=== PATIENT | female | born 1960 | race Caucasian/White ===

== ENCOUNTER 2018-04-23 12:52 | Outpatient (CLI) | payer MEDICARE | END 2018-04-23 23:59 | disposition home or self-care (01) | LOC: CARD DIAG 12:52 | PROVIDERS: ATTEND Family Medicine | DX: I07.1 Rheumatic tricuspid insufficiency (principal) | CPT/HCPCS: 93306 ==

== ENCOUNTER 2019-10-20 09:41 | Day surgery (SDC) | payer MEDICARE, MEDICAID ==
[~2019-10-20] VITALS: Ht 160 cm; Wt 111.0 kg
[~2019-10-20 09:41] MED LIST: ADV50100 IH; ATR0.5NEB NEB; BISA-155 PO; CARV3.12 PO; CLOP75TA15 PO; DOCU-329 PO; ESCI10TA61 PO; FERR325T28 PO; FLUT100D2 IH; HYDR-4353 PO; INSU100I8 SQ; LACTC PO; MONT10TA21 PO; NA P133E4 RC; PANT40TA4 PO; SENN-250 PO; TRAZ-251 PO; UMEC62.5 INH
[2019-10-20 10:15] VITALS: BP 119/76
[2019-10-20] MEDS ORDERED: normal saline 1000ml 1,000 ML IV PRN (10:20)
[2019-10-20] MEDS ORDERED: LIDOcaine 1%/PF 5ML 10 MG/ML VIAL SQ ONE (10:35)
[2019-10-20] MEDS ORDERED: midazolam 2 mg/2 ml injection IV PRN (10:35)
[2019-10-20] MEDS ORDERED: heparin 1,000 units/ml 10ml inj ICATH ONE (10:35)
[2019-10-20] MEDS ORDERED: fentaNYL/PF 50MCG/1 ML 2ML syringe IV PRN (10:35)
[2019-10-20] MEDS ORDERED: VENL75TA4 (10:36)
[2019-10-20] MEDS ORDERED: FURO80TA3 (10:36)
[2019-10-20] MEDS ORDERED: HUM7525 SQ (10:36)
[2019-10-20] MEDS ORDERED: FLUT16SP26 (10:36)
[2019-10-20] MEDS ORDERED: DICL100G30 (10:36)
[2019-10-20 10:49] LABS: ALBUMIN 3.7 G/DL (3.4-5.0); ANION GAP 8 (8-16); BLOOD UREA NITROGEN 60 MG/DL (7-18); BUN/CREATININE RATIO 19.8 (6.6-38.0); CALCIUM 8.8 MG/DL (8.5-10.1); CHLORIDE 104 MMOL/L (99-107); CREATININE 3.03 MG/DL (0.40-0.90); GLUCOSE 158 MG/DL (70-104); SODIUM 140 MMOL/L (135-145); TOTAL CARBON DIOXIDE 28.1 MMOL/L (24-32); eGFR 16 ML/MIN
[2019-10-20] MEDS ORDERED: heparin 1,000unit/ml 10ml vial 10 ML ONE (11:00)
[2019-10-20] MEDS ORDERED: LIDOcaine 1%/PF 5ML 10 MG/ML VIAL ONE (11:00)
[2019-10-20] MEDS ORDERED: midazolam 2 mg/2 ml injection ONE (11:00)
[2019-10-20] MEDS ORDERED: fentaNYL/PF 50MCG/1 ML 2ML syringe ONE (11:00)
[2019-10-20 13:00] VITALS: BP 120/62
[2019-10-20 13:15] VITALS: BP 96/52
[2019-10-20 13:30] VITALS: BP 120/79
[2019-10-20 13:45] VITALS: BP 125/93
[2019-10-20] MEDS ORDERED: cefazolin/dext.iso 2gm/100ml 100 ML IV SCH (16:00)
== END 2019-10-20 14:35 | disposition home or self-care (01) ==
LOC: SSTAY O 09:41
PROVIDERS: ATTEND Radiology Diagnostic Radiology
DX: T82.868A Thrombosis due to vascular prosthetic devices, implants and grafts, initial encounter (principal); N18.9 Chronic kidney disease, unspecified; Z99.2 Dependence on renal dialysis
CPT/HCPCS: 36415; 36581; 77001; 80048; 82948; 99152; 99153; C1769; J1644; J2250; J3010; J7030

== ENCOUNTER 2019-12-16 11:13 | Day surgery (SDC) | payer MEDICARE, MEDICAID ==
[2019-12-16] VITALS (7 sets, daily range): BP systolic 115–148; BP diastolic 59–98
[~2019-12-16] VITALS: Ht 160 cm; Wt 111.0 kg
[~2019-12-16 11:13] MED LIST changes: -ADV50100 IH; -BISA-155 PO; -CARV3.12 PO; +DICL100G30; -DOCU-329 PO; -ESCI10TA61 PO; -FERR325T28 PO; +FLUT16SP26; +FURO80TA3; +HUM7525 SQ; -HYDR-4353 PO; -INSU100I8 SQ; -LACTC PO; -NA P133E4 RC; -SENN-250 PO; +VENL75TA4
--- NOTE | 2019-12-16 11:20 | NUR ---
Pt arrived to unit via wheelchair. Pt oriented to room, including call light use.
[2019-12-16] MEDS ORDERED: cefazolin/dext.iso 2gm/100ml 100 ML IV ONE (12:00)
[2019-12-16] MEDS ORDERED: DICL100G15 TOP (12:09)
[2019-12-16] MEDS ORDERED: INSU100I25 SQ (12:09)
[2019-12-16] MEDS ORDERED: ALBU18HF2 INH (12:09)
[2019-12-16] MEDS ORDERED: SEVE800T28 PO (12:09)
[2019-12-16] MEDS ORDERED: METO5TAB7 PO (12:09)
[2019-12-16] MEDS ORDERED: IPRA3AMP31 INH (12:09)
[2019-12-16 12:26] LABS: BASOPHILS # (AUTO) 0.1 X10'3 (0-0.2); BASOPHILS % (AUTO) 0.4 % (0-1); EOSINOPHILS # (AUTO) 0.2 X10'3 (0-0.9); EOSINOPHILS % (AUTO) 1.1 % (0-6); HEMATOCRIT 35.4 % (35.0-45.0); LYMPHOCYTES # (AUTO) 2.4 X10'3 (1.1-4.8); LYMPHOCYTES % (AUTO) 12.2 % (21-51); MEAN CORPUSCULAR HEMOGLOBIN 31.5 PG (27.0-31.0); MEAN CORPUSCULAR VOLUME 92.7 FL (78-98); MEAN PLATELET VOLUME 7.8 FL (7.4-10.4); MONOCYTES # (AUTO) 1.6 X10'3 (0-0.9); MONOCYTES % (AUTO) 7.9 % (2-12); NEUTROPHILS # (AUTO) 15.7 X10'3 (1.8-7.7); NEUTROPHILS % (AUTO) 78.4 % (42-75); PLATELET COUNT 283 X10'3 (140-440); RED BLOOD COUNT 3.82 X10'6 (4.20-5.60); RED CELL DISTRIBUTION WIDTH 13.7 % (11.5-14.5)
[2019-12-16 13:14] LABS: PLATELET ESTIMATE NORMAL; TOTAL CELLS COUNTED 100
--- NOTE | 2019-12-16 14:00 | NUR ---
Pt transported to angio suite via [facility].
[2019-12-16] MEDS ORDERED: midazolam 2 mg/2 ml injection ONE ×2 (14:18→14:22)
[2019-12-16] MEDS ORDERED: LIDOcaine 1%/PF 5ML 10 MG/ML VIAL ONE (14:18)
[2019-12-16] MEDS ORDERED: fentaNYL/PF 50MCG/1 ML 2ML syringe ONE ×2 (14:19→14:54)
[2019-12-16] MEDS ORDERED: heparin 1,000unit/ml 10ml vial 10 ML ONE (14:38)
--- NOTE | 2019-12-16 15:20 | NUR ---
Pt returned to room via [facility] after TDC exchange. VSS as charted.
--- NOTE | 2019-12-16 15:53 | NUR ---
Pt complaining of 8/10 pain at [address] site. Dr[address] Lane contacted, order received for 650mg PO one time dose of Tylenol.
[2019-12-16] MEDS ORDERED: acetaminophen 325mg tablet PO PRN (15:55)
== END 2019-12-16 16:30 | disposition home or self-care (01) ==
LOC: SSTAY O 11:13
PROVIDERS: ATTEND Radiology Diagnostic Radiology
DX: T82.858A Stenosis of other vascular prosthetic devices, implants and grafts, initial encounter (principal); Y83.8 Other surgical procedures as the cause of abnormal reaction of the patient, or of later complication, without mention of misadventure at the time of the procedure; E11.9 Type 2 diabetes mellitus without complications; Z88.2 Allergy status to sulfonamides; Z88.8 Allergy status to other drugs, medicaments and biological substances; Z88.1 Allergy status to other antibiotic agents; Z79.899 Other long term (current) drug therapy; Z79.4 Long term (current) use of insulin; Z79.01 Long term (current) use of anticoagulants
CPT/HCPCS: 36415; 36558; 76937; 77001; 82948; 85025; 99152; 99153; C1750; C1769; C1894; J1644; J2250; J3010; 36589; A9270

== ENCOUNTER 2020-05-08 10:57 | Day surgery (SDC) | payer MEDICARE, MEDICAID ==
[~2020-05-08] VITALS: Ht 160 cm; Wt 118.5 kg
[~2020-05-08 10:57] MED LIST changes: +ALBU18HF2 INH; -ATR0.5NEB NEB; +DICL100G15 TOP; -DICL100G30; -FURO80TA3; +FURO80TA3 PO; +INSU100I25 SQ; +IPRA3AMP31 INH; +METO5TAB7 PO; +SEVE800T28 PO
[2020-05-08] MEDS ORDERED: albuterol 2.5 MG/3 ML nebule NEB ONE (11:45)
[2020-05-08] MEDS ORDERED: albuterol 2.5 MG/3 ML nebule ONE (11:49)
[2020-05-08 12:06] VITALS: BP 123/54
[2020-05-08] MEDS ORDERED: POTA-82 PO (12:37)
[2020-05-08] MEDS ORDERED: GLIP2.5T3 PO (12:37)
[2020-05-08] MEDS ORDERED: CARCD120C PO (12:37)
[2020-05-08] MEDS ORDERED: FLUT16SP2 BOTHNARES (12:37)
[2020-05-08] MEDS ORDERED: ALBU18HF2 INH (12:37)
[2020-05-08] MEDS ORDERED: TERI2.4P SUBCUT (12:37)
[2020-05-08] MEDS ORDERED: DICL100G15 TOP (12:37)
[2020-05-08] MEDS ORDERED: FENO48TA9 PO (12:37)
[2020-05-08] MEDS ORDERED: midazolam 2 mg/2 ml injection ONE (12:45)
[2020-05-08] MEDS ORDERED: fentaNYL/PF 50MCG/1 ML 2ML syringe ONE (12:46)
[2020-05-08 13:13] VITALS: BP 129/64
== END 2020-05-08 13:45 | disposition home or self-care (01) ==
LOC: SSTAY O 10:57
PROVIDERS: ATTEND Radiology Diagnostic Radiology
DX: T82.49XA Other complication of vascular dialysis catheter, initial encounter (principal); E11.22 Type 2 diabetes mellitus with diabetic chronic kidney disease; I12.9 Hypertensive chronic kidney disease with stage 1 through stage 4 chronic kidney disease, or unspecified chronic kidney disease; N18.9 Chronic kidney disease, unspecified; Y83.8 Other surgical procedures as the cause of abnormal reaction of the patient, or of later complication, without mention of misadventure at the time of the procedure; Y92.89 Other specified places as the place of occurrence of the external cause; R06.83 Snoring
CPT/HCPCS: 36581; 77001; 82948; 94640; 99152; 99153; C1769; C1894; J2250; J3010

== ENCOUNTER 2020-05-24 11:30 | Day surgery (SDC) | payer MEDICARE, MEDICAID ==
[~2020-05-24] VITALS: Ht 160 cm; Wt 116.5 kg
[~2020-05-24 11:30] MED LIST changes: +CARCD120C PO; +FENO48TA9 PO; +FLUT16SP2 BOTHNARES; -FLUT16SP26; +GLIP2.5T3 PO; +POTA-82 PO; +TERI2.4P SUBCUT; -VENL75TA4
[2020-05-24] MEDS ORDERED: normal saline 1000ml 1,000 ML IV PRN (12:00)
[2020-05-24 12:02] VITALS: BP 110/72
[2020-05-24 12:48] LABS: BASOPHILS # (AUTO) 0.1 X10'3 (0-0.2); BASOPHILS % (AUTO) 0.5 % (0-1); EOSINOPHILS # (AUTO) 0.2 X10'3 (0-0.9); EOSINOPHILS % (AUTO) 1.3 % (0-6); HEMOGLOBIN 10.9 g/dl (12.0-16.0); LYMPHOCYTES # (AUTO) 1.9 X10'3 (1.1-4.8); LYMPHOCYTES % (AUTO) 14.5 % (21-51); MEAN CORPUSCULAR HEMOGLOBIN 31.7 PG (27.0-31.0); MEAN CORPUSCULAR HGB CONC 33.2 g/dL (33.0-36.5); MEAN CORPUSCULAR VOLUME 95.7 FL (78-98); MEAN PLATELET VOLUME 8.3 FL (7.4-10.4); MONOCYTES # (AUTO) 1.3 X10'3 (0-0.9); MONOCYTES % (AUTO) 10.3 % (2-12); NEUTROPHILS # (AUTO) 9.5 X10'3 (1.8-7.7); NEUTROPHILS % (AUTO) 73.4 % (42-75); PLATELET COUNT 238 X10'3 (140-440); RED BLOOD COUNT 3.44 X10'6 (4.20-5.60); RED CELL DISTRIBUTION WIDTH 13.8 % (11.5-14.5); WHITE BLOOD COUNT 12.9 X10'3 (4.5-11.0)
[2020-05-24] MEDS ORDERED: heparin 1,000unit/ml 10ml vial 10 ML ONE (14:10)
[2020-05-24] MEDS ORDERED: LIDOcaine 1%/PF 5ML 10 MG/ML VIAL ONE (14:10)
[2020-05-24] MEDS ORDERED: midazolam 2 mg/2 ml injection ONE (14:10)
[2020-05-24] MEDS ORDERED: fentaNYL/PF 50MCG/1 ML 2ML syringe ONE ×2 (14:10→14:56)
[2020-05-24] MEDS ORDERED: ondansetron/PF 4mg/2ml inj ONE (15:18)
[2020-05-24 15:25] VITALS: BP 112/76
[2020-05-24 15:40] VITALS: BP 116/74
[2020-05-24 15:55] VITALS: BP 108/54
[2020-05-24 16:10] VITALS: BP 106/59
[2020-05-24 16:25] VITALS: BP 100/54
== END 2020-05-24 16:45 | disposition home or self-care (01) ==
LOC: SSTAY O 11:30
PROVIDERS: ATTEND Radiology Diagnostic Radiology
DX: T82.49XA Other complication of vascular dialysis catheter, initial encounter (principal); E11.22 Type 2 diabetes mellitus with diabetic chronic kidney disease; N18.9 Chronic kidney disease, unspecified; Z88.2 Allergy status to sulfonamides; Z88.8 Allergy status to other drugs, medicaments and biological substances; Z88.1 Allergy status to other antibiotic agents; Z79.899 Other long term (current) drug therapy; Z79.4 Long term (current) use of insulin; Z79.01 Long term (current) use of anticoagulants; Z11.59 Encounter for screening for other viral diseases; Y83.8 Other surgical procedures as the cause of abnormal reaction of the patient, or of later complication, without mention of misadventure at the time of the procedure; Y92.89 Other specified places as the place of occurrence of the external cause
CPT/HCPCS: 36415; 36558; 36589; 76937; 77001; 82948; 85025; 87635; C1750; C1769; C1894; C9803; J1644; J2250; J2405; J3010; 99152; 99153; A9270

== ENCOUNTER 2020-10-13 10:48 | Day surgery (SDC) | payer MEDICARE, MEDICAID ==
[~2020-10-13] VITALS: Ht 160 cm; Wt 115.3 kg
[~2020-10-13 10:48] MED LIST changes: -PANT40TA4 PO; +PANT40TA54 PO
[2020-10-13] MEDS ORDERED: normal saline 1000ml 1,000 ML IV PRN (11:15)
[2020-10-13] MEDS ORDERED: ceFAZolin/D5W- 1GM premix 50 ML IV ONE (11:15)
[2020-10-13] MEDS ORDERED: CALC668T PO (11:42)
[2020-10-13] MEDS ORDERED: HYDR12.55 PO (11:43)
[2020-10-13 12:00] VITALS: BP 132/89
[2020-10-13] MEDS ORDERED: ESTRADIOL VG (12:01)
[2020-10-13] MEDS ORDERED: LACTC PO (12:02)
[2020-10-13] MEDS ORDERED: CEPH500C2 PO (12:04)
[2020-10-13] MEDS ORDERED: CRAN1CAP3 PO (12:06)
[2020-10-13] MEDS ORDERED: VENL150T3 PO (12:07)
[2020-10-13 12:10] LABS: BASOPHILS # (AUTO) 0.1 X10'3 (0-0.2); BASOPHILS % (AUTO) 0.8 % (0-1); EOSINOPHILS # (AUTO) 0.2 X10'3 (0-0.9); EOSINOPHILS % (AUTO) 2.3 % (0-6); HEMATOCRIT 35.8 % (35.0-45.0); HEMOGLOBIN 11.9 g/dl (12.0-16.0); LYMPHOCYTES % (AUTO) 11.4 % (21-51); MEAN CORPUSCULAR HEMOGLOBIN 30.9 PG (27.0-31.0); MEAN CORPUSCULAR HGB CONC 33.3 g/dL (33.0-36.5); MEAN CORPUSCULAR VOLUME 92.8 FL (78-98); MEAN PLATELET VOLUME 8.9 FL (7.4-10.4); MONOCYTES # (AUTO) 1.4 X10'3 (0-0.9); MONOCYTES % (AUTO) 16.2 % (2-12); NEUTROPHILS # (AUTO) 5.9 X10'3 (1.8-7.7); NEUTROPHILS % (AUTO) 69.3 % (42-75); PLATELET COUNT 227 X10'3 (140-440); RED BLOOD COUNT 3.86 X10'6 (4.20-5.60); RED CELL DISTRIBUTION WIDTH 14.5 % (11.5-14.5); WHITE BLOOD COUNT 8.6 X10'3 (4.5-11.0)
[2020-10-13 12:20] LABS: ALBUMIN 3.9 G/DL (3.4-5.0); ANION GAP 13 (8-16); BLOOD UREA NITROGEN 34 MG/DL (7-18); BUN/CREATININE RATIO 11.9 (6.6-38.0); CALCIUM 8.5 MG/DL (8.5-10.1); CHLORIDE 99 MMOL/L (99-107); CREATININE 2.85 MG/DL (0.40-0.90); GLUCOSE 244 MG/DL (70-104); POTASSIUM 3.7 MMOL/L (3.5-5.1); SODIUM 139 MMOL/L (135-145); TOTAL CARBON DIOXIDE 27.5 MMOL/L (24-32); eGFR 17 ML/MIN
[2020-10-13] MEDS ORDERED: fentaNYL/PF 50MCG/1 ML 2ML syringe ONE ×2 (12:26→13:13)
[2020-10-13] MEDS ORDERED: midazolam 2 mg/2 ml injection ONE (12:26)
[2020-10-13] MEDS ORDERED: heparin 1,000 UNITS/NS 500ml 500 ML ONE (12:27)
[2020-10-13] MEDS ORDERED: heparin 1,000unit/ml 10ml vial 10 ML ONE (12:27)
[2020-10-13] MEDS ORDERED: iohexol 300mg/ml 100ml inj. ONE (12:27)
[2020-10-13] MEDS ORDERED: LIDOcaine 1%/PF 5ML 10 MG/ML VIAL ONE (12:27)
[2020-10-13] MEDS ORDERED: ondansetron/PF 4mg/2ml inj ONE ×2 (12:40→13:54)
[2020-10-13 13:50] LABS: PLATELET ESTIMATE NORMAL; TOTAL CELLS COUNTED 100
[2020-10-13 14:00] VITALS: BP 126/75
[2020-10-13 14:15] VITALS: BP 123/73
[2020-10-13 14:30] VITALS: BP 122/71
--- NOTE | 2020-10-13 14:36 | NUR ---
Upon pt's return to this unit, report received from transportation director. Pt received no sedation and Dr. Palencia stated pt could be discharged in 30 minutes.
[2020-10-13 14:45] VITALS: BP 124/72
== END 2020-10-13 15:15 | disposition home or self-care (01) ==
LOC: SSTAY O 10:48
PROVIDERS: ATTEND Radiology Vascular & Interventional Radiology
DX: T82.49XA Other complication of vascular dialysis catheter, initial encounter (principal); N18.5 Chronic kidney disease, stage 5; Z88.2 Allergy status to sulfonamides; Z88.8 Allergy status to other drugs, medicaments and biological substances; Z79.899 Other long term (current) drug therapy; Z79.01 Long term (current) use of anticoagulants; Y83.8 Other surgical procedures as the cause of abnormal reaction of the patient, or of later complication, without mention of misadventure at the time of the procedure; Y92.89 Other specified places as the place of occurrence of the external cause
CPT/HCPCS: 36415; 36595; 75902; 76937; 80048; 82948; 85025; 85610; 99152; 99153; C1769; C1894; J1644; J2250; J2405; J3010; Q9967; 85007

== ENCOUNTER 2020-10-18 06:19 | Day surgery (SDC) | payer MEDICARE, MEDICAID ==
[~2020-10-18] VITALS: Ht 160 cm; Wt 116.3 kg
[~2020-10-18 06:19] MED LIST changes: +CALC668T PO; +CEPH500C2 PO; +CRAN1CAP3 PO; +ESTRADIOL VG; +HYDR12.55 PO; +LACTC PO; -METO5TAB7 PO; -SEVE800T28 PO; +VENL150T3 PO
[2020-10-18 07:26] VITALS: BP 124/67
[2020-10-18 07:29] LABS: BASOPHILS % (AUTO) 0.4 % (0-1); EOSINOPHILS # (AUTO) 0.1 X10'3 (0-0.9); HEMATOCRIT 32.1 % (35.0-45.0); HEMOGLOBIN 10.8 g/dl (12.0-16.0); LYMPHOCYTES # (AUTO) 1.1 X10'3 (1.1-4.8); MEAN CORPUSCULAR HEMOGLOBIN 30.9 PG (27.0-31.0); MEAN CORPUSCULAR HGB CONC 33.6 g/dL (33.0-36.5); MEAN PLATELET VOLUME 8.1 FL (7.4-10.4); MONOCYTES % (AUTO) 12.1 % (2-12); NEUTROPHILS # (AUTO) 6.2 X10'3 (1.8-7.7); NEUTROPHILS % (AUTO) 73.5 % (42-75); PLATELET COUNT 204 X10'3 (140-440); RED BLOOD COUNT 3.49 X10'6 (4.20-5.60); RED CELL DISTRIBUTION WIDTH 14.2 % (11.5-14.5); WHITE BLOOD COUNT 8.5 X10'3 (4.5-11.0)
[2020-10-18] MEDS ORDERED: midazolam 2 mg/2 ml injection ONE (08:12)
[2020-10-18] MEDS ORDERED: LIDOcaine 1%/PF 5ML 10 MG/ML VIAL ONE (08:12)
[2020-10-18] MEDS ORDERED: fentaNYL/PF 50MCG/1 ML 2ML syringe ONE (08:12)
[2020-10-18] MEDS ORDERED: heparin 1,000unit/ml 10ml vial 10 ML ONE (08:12)
[2020-10-18] MEDS ORDERED: ceFAZolin/D5W- 1GM premix 50 ML IV ONE (08:20)
[2020-10-18] MEDS ORDERED: ondansetron/PF 4mg/2ml inj ONE (08:44)
[2020-10-18 09:20] VITALS: BP 117/70
[2020-10-18 09:35] VITALS: BP 119/68
[2020-10-18 09:50] VITALS: BP 117/69
[2020-10-18 10:05] VITALS: BP 123/73
== END 2020-10-18 10:30 | disposition home or self-care (01) ==
LOC: SSTAY O 06:19
PROVIDERS: ATTEND Radiology Vascular & Interventional Radiology
DX: T82.868A Thrombosis due to vascular prosthetic devices, implants and grafts, initial encounter (principal); T82.49XA Other complication of vascular dialysis catheter, initial encounter; Y83.8 Other surgical procedures as the cause of abnormal reaction of the patient, or of later complication, without mention of misadventure at the time of the procedure
CPT/HCPCS: 36415; 36581; 82948; 85025; 99152; 99153; C1750; C1769; J1644; J2250; J2405; J3010; A9270

== ENCOUNTER 2021-01-10 06:18 | Day surgery (SDC) | payer MEDICARE, MEDICAID ==
[2021-01-10] VITALS (16 sets, daily range): BP systolic 115–169; BP diastolic 56–101
[~2021-01-10] VITALS: Ht 160 cm; Wt 115.1 kg
[2021-01-10] MEDS ORDERED: normal saline 1000ml 1,000 ML IV SCH (06:45)
[2021-01-10] MEDS ORDERED: INSU100V41 SQ (07:07)
[2021-01-10] MEDS ORDERED: APIX5TAB3 PO (07:07)
[2021-01-10] MEDS ORDERED: DULA1.5P (07:07)
[2021-01-10] MEDS ORDERED: PRED5TAB49 PO (07:09)
[2021-01-10 07:41] LABS: ALBUMIN 3.6 G/DL (3.4-5.0); ANION GAP 11 (8-16); BLOOD UREA NITROGEN 55 MG/DL (7-18); BUN/CREATININE RATIO 18.3 (6.6-38.0); CHLORIDE 100 MMOL/L (99-107); CREATININE 3.01 MG/DL (0.40-0.90); GLUCOSE 277 MG/DL (70-104); POTASSIUM 3.8 MMOL/L (3.5-5.1); SODIUM 140 MMOL/L (135-145); TOTAL CARBON DIOXIDE 29.1 MMOL/L (24-32); eGFR 16 ML/MIN
--- NOTE | 2021-01-10 07:54 | NUR ---
Pt sitting in chair next to bed. VS stable as charted.
[2021-01-10] MEDS ORDERED: fentaNYL/PF 50MCG/1 ML 2ML syringe ONE (08:58)
[2021-01-10] MEDS ORDERED: midazolam 1 mg/ML 2ml injection ONE (08:58)
[2021-01-10] MEDS ORDERED: anticoagulant citrate dextrose (ACD) 1000ml solution HE ONE (09:08)
[2021-01-10] MEDS ORDERED: ondansetron/PF 4mg/2ml inj ONE (09:27)
[2021-01-10] MEDS ORDERED: LIDOcaine 1%/PF 5ML 10 MG/ML VIAL ONE (10:00)
== END 2021-01-10 11:14 | disposition home or self-care (01) ==
LOC: SSTAY O 06:18
PROVIDERS: ATTEND Radiology Diagnostic Radiology
DX: E11.22 Type 2 diabetes mellitus with diabetic chronic kidney disease (principal); I12.9 Hypertensive chronic kidney disease with stage 1 through stage 4 chronic kidney disease, or unspecified chronic kidney disease; N18.9 Chronic kidney disease, unspecified; M06.1 Adult-onset Still's disease; Z86.16 Personal history of COVID-19; Z88.2 Allergy status to sulfonamides; Z88.8 Allergy status to other drugs, medicaments and biological substances; Z88.1 Allergy status to other antibiotic agents; Z79.899 Other long term (current) drug therapy; Z79.01 Long term (current) use of anticoagulants
CPT/HCPCS: 36415; 36558; 76937; 77001; 80048; 82948; 85610; 99152; 99153; C1750; C1769; C1894; J2250; J2405; J3010; J7030; A9270

== ENCOUNTER 2021-03-13 14:58 | Outpatient (CLI) | payer MEDICARE, MEDICAID ==
[~2021-03-13 14:58] MED LIST changes: +APIX5TAB3 PO; -CLOP75TA15 PO; +DULA1.5P; -GLIP2.5T3 PO; +INSU100V41 SQ; -LACTC PO; -POTA-82 PO; +PRED5TAB49 PO
== END 2021-03-13 23:59 | disposition home or self-care (01) ==
LOC: LAB 14:58
DX: I10 Essential (primary) hypertension (principal); D63.1 Anemia in chronic kidney disease
CPT/HCPCS: 36415

== ENCOUNTER 2021-05-30 11:20 | Day surgery (SDC) | payer MEDICARE, MEDICAID ==
[2021-05-30] VITALS (10 sets, daily range): BP systolic 113–137; BP diastolic 57–97
[~2021-05-30] VITALS: Ht 160 cm; Wt 113.1 kg
[2021-05-30] MEDS ORDERED: CARSR60C PO (17:02)
[2021-05-30] MEDS ORDERED: EZET10TA6 PO (17:06)
[2021-05-30] MEDS ORDERED: ENOX40SY7 SUBCUT (17:06)
[2021-05-30] MEDS ORDERED: POTA20PA40 PO (17:06)
[2021-05-30] MEDS ORDERED: ONDA4TAB12 PO (17:06)
== END 2021-05-30 14:30 | disposition home or self-care (01) ==
LOC: SSTAY O 11:20
PROVIDERS: ATTEND Radiology Diagnostic Radiology
DX: Z49.01 Encounter for fitting and adjustment of extracorporeal dialysis catheter (principal); N18.6 End stage renal disease; Z79.899 Other long term (current) drug therapy; Z88.8 Allergy status to other drugs, medicaments and biological substances
CPT/HCPCS: 36589; 82948